=== PATIENT | female | born 1945 | race Caucasian/White ===

== ENCOUNTER → 2016-08-27 | Outpatient (CLI) | payer MEDICARE | LOC: RAD 09:23 | PROVIDERS: ATTEND Family Medicine | DX: R19.04 Left lower quadrant abdominal swelling, mass and lump (principal) | CPT/HCPCS: 76856 ==

== ENCOUNTER → 2016-08-30 | Outpatient (CLI) | payer MEDICARE | LOC: RAD 08:51 | PROVIDERS: ATTEND Family Medicine | DX: R63.4 Abnormal weight loss (principal) | CPT/HCPCS: 78264; A9541 ==

== ENCOUNTER → 2016-08-31 | Outpatient (CLI) | payer MEDICARE ==
[2016-08-31 08:16] LABS: BASOPHILS % (AUTO) 0 % (0-2); EOSINOPHILS # (AUTO) 0.1 10^3uL; EOSINOPHILS % (AUTO) 1 % (0-4); LYMPHOCYTES # (AUTO) 2.8 X10^3; MEAN CORPUSCULAR HEMOGLOBIN 31.1 PG (26.0-34.0); MEAN CORPUSCULAR HGB CONC 32.8 g/dL (31.0-37.0); MEAN CORPUSCULAR VOLUME 95 FL (80-100); MEAN PLATELET VOLUME 8.9 FL (6.0-9.5); MONOCYTES # (AUTO) 0.4 X10^3; MONOCYTES % (AUTO) 5 % (3-11); NEUTROPHILS # (AUTO) 4.3 X10^3; NEUTROPHILS % (AUTO) 57 % (51-67); PLATELET COUNT 257 10^3uL (150-450); WHITE BLOOD COUNT 7.62 10^3uL (4.0-11.0)
[2016-08-31 08:29] LABS: BILIRUBIN,URINE Negative (Negative); CLARITY,URINE Clear; COLOR,URINE Yellow; GLUCOSE, URINE (UA) Negative (Negative); LEUKOCYTE ESTERASE ,URINE Negative (Negative); UROBILINOGEN,URINE 0.2 mg/dL (0.2-1.0)
[2016-08-31 08:50] LABS: ALBUMIN 4.4 g/dL (3.4-5.0); ANION GAP 12.9 MEQ/L (3-15); CALCULATED IONIZED CALCIUM 4.3 mg/dL (3.8-4.6)
[2016-08-31 08:59] LABS: ERYTHROCYTE SEDIMENTATION RT* 4 mm/hr (0-23)
== END ==
LOC: LAB 07:58
PROVIDERS: ATTEND Family Medicine
DX: R63.4 Abnormal weight loss (principal); G43.109 Migraine with aura, not intractable, without status migrainosus
CPT/HCPCS: 36415; 80053; 81003; 82150; 83516; 83520; 83690; 84443; 85025; 85652; 86256

== ENCOUNTER → 2016-09-02 | Outpatient (CLI) | payer MEDICARE | LOC: RAD 09:23 | PROVIDERS: ATTEND Family Medicine | DX: R19.04 Left lower quadrant abdominal swelling, mass and lump (principal); R10.32 Left lower quadrant pain | CPT/HCPCS: 74178; Q9967 ==

== ENCOUNTER → 2016-09-29 | Outpatient (CLI) | payer MEDICARE ==
[~2016-09-29] MED LIST: ATOR10TA PO; ESTR0.5T PO; FLUT16SP NS; FURO-125 PO; GBPN300C PO; HYDR-3702 PO; MTH750T PO; NEBI5TAB8 PO; OMEP40CA3 PO; SERT50TA2 PO; SPRN25T PO; TIOT18CA IH; TOPI50CA5 PO; ZOLP10TA PO
--- NOTE | 2016-09-29 12:06 | Diagnostic Imaging Report ---
BARIUM ENEMA Technique: Gastrografin barium enema was performed under direct fluoroscopy. Indication: Constipation. Comparison: CT abdomen and pelvis from 09/02/16 Findings: The patient was placed in the left lateral decubitus position on the fluoroscopic table. A rectal tube was inserted and the balloon was inflated within the rectum. Using gravity, water-soluble contrast material was instilled retrograde into the rectum and colon. Contrast passed smoothly throughout the entire colon with reflux into the terminal ileum. Colon demonstrated normal haustral fold pattern. There are no strictures or intrinsic mass lesions. No extrinsic mass effect on the colon. Postevacuation imaging demonstrate near-complete evacuation of the contrast material. No appreciable stool is present owing to patient's preprocedural prep. Impression: 1. Normal single contrast Gastrografin enema. No residual stool was present after bowel prep performed prior day. Dictated by: Dictated on workstation # [id number]
== END ==
LOC: RAD 10:11
PROVIDERS: ATTEND Surgery
DX: R10.32 Left lower quadrant pain (principal); K59.00 Constipation, unspecified
CPT/HCPCS: 74270